=== PATIENT | female | born 1965 | race Caucasian/White ===

== ENCOUNTER → 2020-02-20 10:27 | Outpatient (CLI) | payer OTHER, SELFPAY | PROVIDERS: PCP Internal Medicine; Referring Provider Physician Assistant Surgical; Visit Provider Physician Assistant Surgical | DX: R05 Cough (principal); R51.9 Headache, unspecified | CPT/HCPCS: 87635; C9803; U0003 ==

== ENCOUNTER 2023-03-14 18:53 | Emergency (ER) | payer OTHER, SELFPAY ==
[2023-03-14 18:58] VITALS: BP 135/93; PULSE 69; RESP 18; TEMP 36.4; O2SAT 96; BMI 27.1
--- NOTE | 2023-03-14 19:44 | EX.ED.DYSGE1 ---
HPI History of Present Illness Chief Complaint: Foreign Body Informant: patient Narrative Narrative: Patient is a 57-year-old female presenting with foreign body to right ear. She wears hearing aids. She states that earlier today she was briskly taking her hearing aid out and the plastic piece that goes in her ear canal state in the ear canal. She tried to get out but only felt to go deeper. She came in to have it removed she did not want a wait overnight in case it cause more problems. No other complaints or concerns at this time. [facility] Medical History Acute conjunctivitis of left eye Acute otitis media, left Acute sinusitis, unspecified Encounter for screening for COVID-19 Home Medications levothyroxine 100 mcg tablet 100 mcg PO DAILY 09/15/15 [History Last Taken Unknown] venlafaxine 75 mg capsule,extended release 24 hr mg PO 05/20/19 [History Last Taken Unknown] azithromycin 250 mg tablet 250 mg PO QDAY #12 tabs 07/30/22 [Rx Last Taken Unknown] pravastatin 20 mg tablet ea PO 07/30/22 [History Last Taken Unknown] tobramycin 0.3 % eye drops 1 drp ophthalmic (eye) Q2H #5 mL 07/30/22 [Rx Last Taken Unknown] Allergy/AdvReac Type Severity Reaction Status Date / Time Penicillins [PCN] Allergy Hives Verified 03/14/23 18:57 Family History Father Prostate cancer Social History Smoking Status: Current every day smoker tobacco type: cigarettes alcohol intake: never ROS ROS ED Constitutional Constitutional ED: Denies chills or fever(s) ENT ENT ED: Reports ear pain right and other Details: Foreign body to right ear Gastrointestinal Gastrointestinal: Denies nausea or vomiting Integumentary Denies rash Neurologic Neurologic: Denies headache(s) EXAM Physical Exam Const Vital Signs: 03/14/23 18:58 Temperature 97.5 F L Temperature Source Temporal Pulse Rate 69 Respiratory Rate 18 Blood Pressure 135/93 H Blood Pressure Mean 107 Pulse Ox 96 Oxygen Delivery Method Room Air Positive well nourished and well developed General Appearance ED: well developed and NAD HEENT Reports moist mucous membranes HEENT Narrative: normal external ears. Normal left panic membrane. There is a white plastic foreign body noted in the right ear canal. No discharge noted. Negative for trauma Eyes PERRL and EOMs intact bilaterally Chest Wall inspection of chest normal Resp normal respiratory effort Neuro oriented x3 Sensorium / Orientation: alert Psych mental status grossly normal Skin no rashes or lesions noted and no wounds MDM MDM MDM Narrative Medical decision making narrative: Patient valuated foreign body to the right ear. Patient does have a visualized foreign body consistent with a soft plastic piece of hearing aid. Attempted to remove with sinus forceps (we did not have alligator forceps available at this time). Patient did not tolerate this. I then utilized a balloon extractor in the hole in the center of the foreign body to move it out far enough so I could grab it with the extractor. Patient had discomfort during this but otherwise tolerated well. Repeat evaluation there is no further foreign body however there is some localized erythema to the wall of the ear canal with no active bleeding. Does not appear to be any tympanic membrane perforation. Patient given return precautions. Discharged home in stable condition. She has improvement and resolution of symptoms after removal of the foreign body. I do not think she requires any prophylactic/empiric antibiotics. Discharge Plan Triage Chief Complaint: Foreign Body ED Provider: Elsi Humphries Dx/Rx/DC Orders Clinical Impression: Acute foreign body of right ear canal Instructions: ED Foreign Body, Ear Canal (Removed) Prescriptions: No Action venlafaxine 75 mg capsule,extended release 24hr PO Patient Comments: Take 1 capsule by mouth once daily. pravastatin 20 mg tablet PO Patient Comments: Take 1 tablet by mouth daily at bedtime. azithromycin 250 mg tablet 250 mg PO QDAY Qty: 12 0RF Rx Instructions: 2 tablets today, then 1 tablet daily on days 2 through 11 tobramycin 0.3 % drops 1 drp ophthalmic (eye) Q2H Qty: 5 0RF Rx Instructions: to affected eye(s) while awake for 3 days levothyroxine 100 MCG tablet 100 mcg PO DAILY Primary Care Provider: Umesh Leslie Referrals: Umesh Leslie MD [Primary Care Provider] - Disposition Disposition: Home, Self Care
== END 2023-03-14 19:59 | disposition home or self-care (01) ==
PROVIDERS: Emergency Provider Emergency Medicine; PCP Internal Medicine; Visit Provider Emergency Medicine
DX: T16.1XXA Foreign body in right ear, initial encounter (principal); F17.210 Nicotine dependence, cigarettes, uncomplicated
CPT/HCPCS: 69200; 99282